=== PATIENT | male | born 1950 | race Caucasian/White ===

== ENCOUNTER 2018-07-10 19:00 | Inpatient (IN) | payer OTHER ==
[~2018-07-10] VITALS: Ht 172.7 cm; Wt 90.7 kg
[~2018-07-10 19:00] MED LIST: CENTRUM TABLET1 TAB; UNIVASC7.5 MG PO; VASOTEC20 MG; ZANTAC150 M1
[2018-07-10] MEDS ORDERED: NORVASC5 MG (19:18)
--- NOTE | 2018-07-10 19:19 | NUR ---
SE RECIBE PTE ALERTA Y ORIENTADO X3,REFIERE DOLOR ABDOMINAL EN EL CENTRO DEL ABDOMEN ,LE COMENZO HOY.
--- NOTE | 2018-07-10 20:02 | NUR ---
PTE REFIERE DOV TENIDO 2 EPISODIOS DE VOMITOS.
--- NOTE | 2018-07-10 20:38 | NUR ---
PACIENTE ALERTA Y ORIENTADO EVALUADO POR LA . RENTA SE ORIENTA A PACIENTE SOBRE TRATAMEINTO MEDICO SE EXTRAEN MUESTRAS DE N[place] Y SE ADMINSITRAN MEDICAMENTOS ENOC ORDEN MEDICA BAJO MEDIDAS ASEPTICAS.
--- NOTE | 2018-07-11 07:07 | NUR ---
SE RECIBE DE TURNO ANTERIOR. PACIENTE MASCULINO. ALERTA Y ORIENTADO. BUEN PATRON RESPIRATORIO, PIEL TIBIA AL TACTO. CANALIZACION PATENTE, GERTRUDE DE EDEMA Y/O ENROJECIMIENTO RECIBIENDO 0.9%NSS @150 ML/HR. PACIENTE EN ESPERA DE CONSULTA CON DRA GARCIA.
--- NOTE | 2018-07-11 07:50 | NUR ---
SE LE NOTIFICA AL DR MONROE BP MANUAL DE PTE.
== END 2018-08-05 04:39 | disposition expired | DRG 264 ==
LOC: ER 19:00 → MEDJ 07-11 13:24 → ICU 07-11 13:24 → SEC-K 07-11 13:24 → MEDJ 07-11 17:08 → ICU 07-12 13:49
PROVIDERS: ADMIT Internal Medicine
PROC: 4A033R1 Measurement of Arterial Saturation, Peripheral, Percutaneous Approach (ICD-10-PCS; 2018-07-11)
PROC: 5A1945Z Respiratory Ventilation, 24-96 Consecutive Hours (ICD-10-PCS; 2018-07-11)
PROC: 0BH17EZ Insertion of Endotracheal Airway into Trachea, Via Natural or Artificial Opening (ICD-10-PCS; 2018-07-11)
PROC: 3E0F7GC Introduction of Other Therapeutic Substance into Respiratory Tract, Via Natural or Artificial Opening (ICD-10-PCS; 2018-07-11)
PROC: 8E0ZXY6 Isolation (ICD-10-PCS; 2018-07-11)
PROC: 02HV33Z Insertion of Infusion Device into Superior Vena Cava, Percutaneous Approach (ICD-10-PCS; 2018-07-12)
PROC: 3E0G76Z Introduction of Nutritional Substance into Upper GI, Via Natural or Artificial Opening (ICD-10-PCS; 2018-07-12)
PROC: 4A12X4Z Monitoring of Cardiac Electrical Activity, External Approach (ICD-10-PCS; 2018-07-12)
PROC: 0T9B70Z Drainage of Bladder with Drainage Device, Via Natural or Artificial Opening (ICD-10-PCS; 2018-07-12)
PROC: BF37ZZZ Magnetic Resonance Imaging (MRI) of Pancreas (ICD-10-PCS; 2018-07-15)
PROC: BW21Y0Z Computerized Tomography (CT Scan) of Abdomen and Pelvis using Other Contrast, Unenhanced and Enhanced (ICD-10-PCS; 2018-07-28)
PROC: B54DZZZ Ultrasonography of Bilateral Lower Extremity Veins (ICD-10-PCS; 2018-07-29)
PROC: 3E0336Z Introduction of Nutritional Substance into Peripheral Vein, Percutaneous Approach (ICD-10-PCS; 2018-07-29)
PROC: 0JB70ZZ Excision of Back Subcutaneous Tissue and Fascia, Open Approach (ICD-10-PCS; principal; 2018-08-01)
PROC: 30233N1 Transfusion of Nonautologous Red Blood Cells into Peripheral Vein, Percutaneous Approach (ICD-10-PCS; 2018-08-04)
DX: I96 Gangrene, not elsewhere classified (principal); K85.90 Acute pancreatitis without necrosis or infection, unspecified; K57.31 Diverticulosis of large intestine without perforation or abscess with bleeding; J96.21 Acute and chronic respiratory failure with hypoxia; K65.9 Peritonitis, unspecified; J96.01 Acute respiratory failure with hypoxia; J15.212 Pneumonia due to Methicillin resistant Staphylococcus aureus; J15.1 Pneumonia due to Pseudomonas; B37.1 Pulmonary candidiasis; J10.08 Influenza due to other identified influenza virus with other specified pneumonia; N17.9 Acute kidney failure, unspecified; I13.0 Hypertensive heart and chronic kidney disease with heart failure and stage 1 through stage 4 chronic kidney disease, or unspecified chronic kidney disease; N17.8 Other acute kidney failure; E87.4 Mixed disorder of acid-base balance; J98.11 Atelectasis; I48.1 Persistent atrial fibrillation; I48.3 Typical atrial flutter; R65.10 Systemic inflammatory response syndrome (SIRS) of non-infectious origin without acute organ dysfunction; L89.151 Pressure ulcer of sacral region, stage 1; I11.9 Hypertensive heart disease without heart failure; L80 Vitiligo; I95.9 Hypotension, unspecified; Z99.81 Dependence on supplemental oxygen; N18.1 Chronic kidney disease, stage 1; R79.82 Elevated C-reactive protein (CRP); E11.22 Type 2 diabetes mellitus with diabetic chronic kidney disease; E11.65 Type 2 diabetes mellitus with hyperglycemia; N18.2 Chronic kidney disease, stage 2 (mild); Z79.4 Long term (current) use of insulin; B96.1 Klebsiella pneumoniae [K. pneumoniae] as the cause of diseases classified elsewhere; B95.62 Methicillin resistant Staphylococcus aureus infection as the cause of diseases classified elsewhere; D35.02 Benign neoplasm of left adrenal gland; Z79.01 Long term (current) use of anticoagulants; I71.4 Abdominal aortic aneurysm, without rupture; Z74.01 Bed confinement status; R34 Anuria and oliguria; D63.1 Anemia in chronic kidney disease; Z22.322 Carrier or suspected carrier of Methicillin resistant Staphylococcus aureus; B97.89 Other viral agents as the cause of diseases classified elsewhere